=== PATIENT | male | born 1940 | race Hispanic/Latino ===

== ENCOUNTER 2024-11-29 08:53 | Emergency (ER) | payer OTHER ==
[~2024-11-29] VITALS: Ht 154.9 cm; Wt 68.9 kg
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
--- NOTE | 2024-11-29 10:27 | HMCIMG ---
Exam Type: CERV SPINE 2-3VWS Clinical Information: trauma Comparison: None FINDINGS: C1 through the top of T1 are seen on the lateral view. The prevertebral soft tissues are normal. No fractures or dislocations are seen. There are spondylytic changes and there are degenerative changes of the facet joints. There is narrowing of the C5-6 and C6-7 discs consistent with degenerative disc disease. The other disc spaces are intact. There is adequate alignment. IMPRESSION: Degenerative changes as noted.
--- NOTE | 2024-11-29 10:28 | HMCIMG ---
Exam Type: HIP UNILAT 2-3VW LEFT Clinical Information: trauma Comparison: None Findings: The bone examination is unremarkable. No fractures or dislocations are seen. No radiopaque foreign bodies are noted. Soft tissues are preserved. IMPRESSION: Normal examination.
--- NOTE | 2024-11-29 10:55 | HMCIMG ---
Exam Type: KNEE 3VWS LT Clinical Information: trauma Comparison: None Findings: The bone examination is unremarkable. No fractures or dislocations are seen. No radiopaque foreign bodies are noted. Soft tissues are preserved. IMPRESSION: Normal examination.
[2024-11-29 11:26] VITALS: BP 154/49; PULSE 63; RESP 16; TEMP 97.5; O2SAT 99
== END 2024-11-29 11:28 | disposition home or self-care (01) ==
LOC: EDH 08:53
DX: M79.18 Myalgia, other site (principal); E11.9 Type 2 diabetes mellitus without complications; I10 Essential (primary) hypertension; V89.2XXA Person injured in unspecified motor-vehicle accident, traffic, initial encounter; Y93.89 Activity, other specified; Y92.89 Other specified places as the place of occurrence of the external cause; Y99.8 Other external cause status
CPT/HCPCS: 72040; 73502; 73562; 99284